=== PATIENT | female | born 1955 ===

== ENCOUNTER 2023-12-19 20:04 | Outpatient (REF) | payer MEDICARE, SELFPAY ==
[2023-12-19 14:01] LABS: Bilirubin Negative (Negative); Blood Negative (Negative); Clarity Clear (Clear); Glucose Negative (Negative); Ketones Negative (Negative); Leukocyte Esterase Negative (Negative); Nitrite Negative (Negative); Specific Gravity 1.015 (1.005-1.025); Urobilinogen 0.2 mg/dL (Up to 0.2)
== END 2023-12-19 20:05 | disposition home or self-care (01) ==
LOC: LBN 20:04
PROVIDERS: PCP Family Medicine; Visit Provider Family Medicine
DX: R35.0 Frequency of micturition (principal)
CPT/HCPCS: 81003; 87086

== ENCOUNTER 2024-01-02 14:49 | Outpatient (REF) | payer MEDICARE, SELFPAY ==
[2024-01-02 16:51] LABS: HCT 40.7 % (36.0-46.0); HGB 13.1 g/dL (11.2-15.7); MCH 31.7 pg (27.0-33.0); MCHC 32.2 % (32.0-36.0); MCV 99 fL (80-95); MPV 12.5 fL (8.0-11.0); Platelet Count 261 10^3/uL (130-400); RBC 4.13 10^6/uL (3.93-5.22); RDW 12.4 % (11.7-14.6)
[2024-01-02 17:37] LABS: ALT 21 U/L (14-59); AST 22 U/L (15-37); Albumin 3.6 g/dL (3.4-5.0); Alkaline Phosphatase 132 U/L (46-116); Anion Gap 10.1 mmol/L (3-11); BUN 15 mg/dL (7-18); Bilirubin, Total 0.38 mg/dL (0.2-1.0); CO2 28.9 mmol/L (21.0-32.0); CREATININE 0.7 mg/dL (0.55-1.02); Calcium 9.7 mg/dL (8.5-10.1); Chloride 99 mmol/L (98-107); Estimated GFR 93.56 (mL/min/1.73m2); Glucose 191 mg/dL (74-106); Potassium 4.4 mmol/L (3.5-5.1); Sodium 138 mmol/L (136-145); TSH (W/Ref FT4) 1.45 uIU/mL (0.36-3.74); Total Protein 7.5 g/dL (6.4-8.2); Vitamin D 25 Total 33.5 ng/mL (30-100)
== END 2024-01-02 14:50 | disposition home or self-care (01) ==
LOC: LBN 14:49
PROVIDERS: PCP Family Medicine; Visit Provider Family Medicine
DX: E87.1 Hypo-osmolality and hyponatremia (principal); E55.9 Vitamin D deficiency, unspecified; D50.0 Iron deficiency anemia secondary to blood loss (chronic)
CPT/HCPCS: 80053; 82306; 85027; 84443

== ENCOUNTER 2024-01-16 18:31 | Outpatient (REF) | payer MEDICARE, SELFPAY ==
[2024-01-16 16:26] LABS: BUN 39 mg/dL (7-18); Calcium 9.8 mg/dL (8.5-10.1); Chloride 101 mmol/L (98-107); Estimated GFR 60.98 (mL/min/1.73m2); Glucose 157 mg/dL (74-106); Potassium 4.1 mmol/L (3.5-5.1); Sodium 138 mmol/L (136-145)
[2024-01-16 16:56] LABS: Hemoglobin A1C 5.5 % (<5.7)
== END 2024-01-16 18:32 | disposition home or self-care (01) ==
LOC: LBN 18:31
PROVIDERS: PCP Family Medicine; Visit Provider Family Medicine
DX: E87.1 Hypo-osmolality and hyponatremia (principal)
CPT/HCPCS: 80048; 83036